=== PATIENT | female | born 1950 | race African-American/Black ===

== ENCOUNTER 2018-08-05 09:43 | Emergency (ER) | payer MEDICARE, MEDICAID ==
[~2018-08-05] VITALS: Ht 167.6 cm; Wt 78.0 kg
[2018-08-05] MEDS: TRAMADOL 50MG TABLET PO ONE (10:40)
[2018-08-05] MEDS: IBUPROFEN 400MG TABLET PO ONE (10:40)
[2018-08-05 12:55] VITALS: BP 198/62
== END 2018-08-05 13:07 | disposition home or self-care (01) ==
LOC: ER 09:43
DX: S20.211A Contusion of right front wall of thorax, initial encounter (principal); S30.0XXA Contusion of lower back and pelvis, initial encounter; E11.9 Type 2 diabetes mellitus without complications; I10 Essential (primary) hypertension; Z90.49 Acquired absence of other specified parts of digestive tract; Z88.2 Allergy status to sulfonamides; W18.39XA Other fall on same level, initial encounter; Y93.89 Activity, other specified; Y92.811 Bus as the place of occurrence of the external cause; Y99.8 Other external cause status
CPT/HCPCS: 71100; 72170; 99283